=== PATIENT | female | born 1990 | race Caucasian/White ===

== ENCOUNTER 2018-10-12 21:06 | Inpatient (IN) | payer MEDICAID ==
[~2018-10-12] VITALS: Ht 157.5 cm; Wt 69.5 kg
[2018-10-12 21:20] VITALS: Ht 157.5 cm; Wt 69.5 kg
[2018-10-12 22:55] LABS: microscopic required? YES; urine erythrocyte 2+ (NEGATIVE)
[2018-10-12 23:03] LABS: AMPHETAMINE QUAL UR NONE DETECTED (See below)
[2018-10-12 23:11] LABS: BASOPHIL % 0.3 % (0-2); PLATELET COUNT 154 x10^3mcL (130-400); RED CELL DISTRIBUTION WIDTH 12.6 % (11.5-14.5)
[2018-10-12 23:14] LABS: CALCIUM 9.4 mg/dL (8.5-10.1); CHLORIDE SERUM 99 mmol/L (98-107); CREATININE SERUM 0.7 mg/dL (0.6-1.0); GFR1 > 60 mL/min; GLUCOSE SERUM 140 mg/dL (74-106); POTASSIUM SERUM 3.3 mmol/L (3.5-5.1); SODIUM SERUM 137 mmol/L (136-145)
[2018-10-12 23:32] LABS: ALBUMIN 4.5 g/dL (3.4-5.0); ALKALINE PHOSPHATASE 63 U/L (46-116); ALT/SGPT 56 U/L (14-59); AST/SGOT 35 U/L (15-37)
[2018-10-12 23:41] LABS: TOTAL PROTEIN, SERUM 8.6 g/dL (6.4-8.2)
[2018-10-13 03:46] LABS: MAGNESIUM 1.9 mg/dL (1.8-2.4); PHOSPHOROUS 2.9 mg/dL (2.5-4.9)
[2018-10-13 03:54] LABS: T3 TOTAL 1.02 ng/mL
[2018-10-13 04:01] LABS: FREE THYROXINE INDEX 2.8 ug/dL (1.4-4.5); T4(THYROXINE) 8.7 ug/dL (4.7-13.3)
[2018-10-13 08:58] LABS: BASOPHIL % 0.2 % (0-2); PLATELET COUNT 150 x10^3mcL (130-400)
[2018-10-13 09:07] LABS: CALCIUM 8.9 mg/dL (8.5-10.1); CARBON DIOXIDE 26.5 mmol/L (21-32); CHLORIDE SERUM 101 mmol/L (98-107); CREATININE SERUM 0.7 mg/dL (0.6-1.0); GFR1 > 60 mL/min; GLUCOSE SERUM 112 mg/dL (74-106); POTASSIUM SERUM 3.4 mmol/L (3.5-5.1); SODIUM SERUM 138 mmol/L (136-145)
[2018-10-13 09:16] LABS: ALBUMIN 4.1 g/dL (3.4-5.0); BILIRUBIN DIRECT 0.19 mg/dL (0.0-0.2); TOTAL PROTEIN, SERUM 7.8 g/dL (6.4-8.2)
[2018-10-13 09:25] VITALS: BP 123/80
[2018-10-13 13:37] VITALS: BP 103/67
[2018-10-13 18:28] VITALS: BP 112/68
[2018-10-13 21:54] VITALS: BP 97/67
[2018-10-14 06:06] LABS: BASOPHIL % 0.6 % (0-2); PLATELET COUNT 134 x10^3mcL (130-400)
[2018-10-14 06:12] VITALS: BP 97/55
[2018-10-14 06:18] LABS: CALCIUM 8.5 mg/dL (8.5-10.1); CARBON DIOXIDE 25.8 mmol/L (21-32); CHLORIDE SERUM 106 mmol/L (98-107); CREATININE SERUM 0.7 mg/dL (0.6-1.0); GFR1 > 60 mL/min; GLUCOSE SERUM 83 mg/dL (74-106); POTASSIUM SERUM 4.4 mmol/L (3.5-5.1); SODIUM SERUM 139 mmol/L (136-145)
[2018-10-14 07:18] VITALS: BP 107/63
[2018-10-14] MEDS ORDERED: MOT800 PO (09:51)
[2018-10-14 10:42] VITALS: BP 107/63
== END 2018-10-14 12:15 | disposition home or self-care (01) | DRG 812 ==
LOC: ED 21:06 → EDBD 10-13 02:48 → DU 10-13 02:48
PROVIDERS: Emergency Medicine; Internal Medicine; ADMIT General Practice
DX: T39.311A Poisoning by propionic acid derivatives, accidental (unintentional), initial encounter (principal); E02 Subclinical iodine-deficiency hypothyroidism; E87.6 Hypokalemia; R00.2 Palpitations; Y92.018 Other place in single-family (private) house as the place of occurrence of the external cause
CPT/HCPCS: 83880; 84439; G0480; J2060; J2405; J7030; Q0092